=== PATIENT | male | born 1975 | race Two or more races ===

== ENCOUNTER 2019-12-09 05:08 | Inpatient (IN) | payer OTHER ==
[2019-12-09] VITALS (13 sets, daily range): BP systolic 117–142; BP diastolic 71–90
[~2019-12-09] VITALS: Ht 190.5 cm; Wt 137.9 kg
[2019-12-09] MEDS ORDERED: Vancomycin 1gm/D5W 275ml IVPB ONE ×2 (06:00)
[2019-12-09] MEDS ORDERED: Pantoprazole Inj IVP ONE (06:00)
[2019-12-09] MEDS ORDERED: Pantoprazole Inj ONE (06:45)
[2019-12-09] MEDS ORDERED: Rocuronium Bromide 50mg/5ml Inj IV ONE (06:46)
[2019-12-09] MEDS ORDERED: Vancomycin 1gm vial IVPB ONE (06:46)
[2019-12-09] MEDS ORDERED: Gelfoam Size TOPIC ONE (06:56)
[2019-12-09] MEDS ORDERED: Thrombin 5000 units TOPIC ONE (06:56)
[2019-12-09] MEDS ORDERED: Bacitracin Oint 15gm Tube TOPIC ONE (06:56)
[2019-12-09] MEDS ORDERED: Heparin 1000 units/ml 1ml Vial ONE (06:56)
[2019-12-09] MEDS ORDERED: Bacitracin 50000 Units Vial ONE (06:57)
[2019-12-09] MEDS ORDERED: Bupivacaine w/Epi 0.5% 30ml Vial INJ ONE (06:57)
[2019-12-09] MEDS ORDERED: Propofol 1,000mg/ 100ml btl IV ONE (07:00)
[2019-12-09] MEDS ORDERED: LR 1000ml 1,000 ML IVLG SCH (07:05)
[2019-12-09] MEDS ORDERED: Lidocaine 1% Plain 30 ml INJ ONE ×3 (07:09→10:55)
[2019-12-09] MEDS ORDERED: Metoclopramide 10mg/2ml Inj IVP PRN (07:15)
[2019-12-09] MEDS ORDERED: Labetalol 5mg/ml 20ml vial IV PRN (07:15)
[2019-12-09] MEDS ORDERED: Meperidine 25mg/0.5ml Inj (FOR RIGORS ONLY) IV PRN (07:15)
[2019-12-09] MEDS ORDERED: Acetaminophen (Non formulary) 100 ML IV ONE ×3 (07:15→15:00)
[2019-12-09] MEDS ORDERED: Ketorolac 30mg Inj IV PRN ×2 (07:15)
[2019-12-09] MEDS ORDERED: DiphenhydrAMINE 50mg/ml Inj IVP PRN (07:15)
[2019-12-09] MEDS ORDERED: Atropine Sulfate 0.4mg/ml inj IVP PRN (07:15)
[2019-12-09] MEDS ORDERED: LORazepam Inj 2mg/ml 1ml IV PRN (07:15)
[2019-12-09] MEDS ORDERED: fentaNYL 100 mcg/2 mL IV PRN (07:15)
[2019-12-09] MEDS ORDERED: HYDROcodone/Acetamin 7.5/325 tab ORAL PRN (07:15)
[2019-12-09] MEDS ORDERED: Hydromorphone 0.5mg/0.5ml inj IVP PRN (07:15)
[2019-12-09] MEDS ORDERED: oxyCODONE HCL/Acetaminophen 5/325mg ORAL PRN (07:15)
[2019-12-09] MEDS ORDERED: HYDROcodone/Acetamin 5/325 tab ORAL PRN (07:15)
[2019-12-09] MEDS ORDERED: Midazolam 2mg/2ml Inj IVP PRN (07:15)
[2019-12-09] MEDS ORDERED: Sodium Chloride 10ml vial INJ ONE (07:16)
[2019-12-09] MEDS ORDERED: Lidocaine 1% MPF 10mg/ml 5ml ONE (07:16)
[2019-12-09] MEDS ORDERED: Dexamethasone 4mg/ml vial ONE (07:16)
[2019-12-09] MEDS ORDERED: fentaNYL 100 mcg/2 mL IV ONE ×3 (07:17→11:21)
--- NOTE | 2019-12-09 07:26 | Anethesia Preoperative Eval ---
Anesthesia Pre-op PMH/ROS General Date of Evaluation: Dec 09, 2019 Time of Evaluation: 07:36 Anesthesiologist: Susana ASA Score: ASA 3 Mallampati Score Class I : Soft palate, uvula, fauces, pillars visible Class II: Soft palate, uvula, fauces visible Class III: Soft palate, base of uvula visible Class IV: Only hard plate visible Mallampati Classification: Class III Surgeon: Josep Diagnosis: Back Pain Surgical Procedure: TLIF L5-S1 Anesthesia History: none Family History: no anesthesia problems Allergies: Coded Allergies: No Known Allergies (Unverified , 12/06/19) Medications: see eMAR Patient NPO?: Yes NPO Date: Dec 08, 2019 NPO Time: 1900 Past Medical History Cardiovascular: Reports: HTN Pulmonary: Reports: MURIEL - CPAP Neurologic/Psychiatric: Reports: depression/anxiety Other: obesity - BMI 38 PSxH Narrative: Cholecystectomy Anesthesia Pre-op Phys. Exam Physician Exam Last Vital Signs Date Time Temp Pulse Resp B/P (MAP) Pulse Ox O2 Delivery O2 Flow Rate FiO2 12/09/19 06:11 Room Air 12/09/19 06:07 98.0 51 18 139/82 (101) 97 Constitutional: NAD Neurologic: CN 2-12 intact Cardiovascular: RRR Respiratory: CTA Gastrointestinal: S/NT/ND Airway Exam Mallampati Score: Class III MO: limited ROM: limited Teeth: intact Anesthesia Pre-op A/P Risk Assessment & Plan Assessment: ASA 3 Plan: GA, SED,GlideScope Status Change Before Surgery: No Pre-Antibiotics Dru Gram Vancomycin IV Given Within 1 Hr of Incision: Yes Time Given: 07:56 Pop Meza MD Dec 09, 2019 07:26
[2019-12-09] MEDS ORDERED: NS Irrig 1000ml ONE (07:30)
[2019-12-09] MEDS ORDERED: LR 1000ml ONE (07:30)
[2019-12-09] MEDS ORDERED: Sterile Water Irrig 2000ml IRRIG ONE (07:30)
--- NOTE | 2019-12-09 07:31 | Immediate Post-Op Evaluation ---
Immediate Post-Op Evalulation Immediate Post-Op Evalulation Procedure: TLIF L5-S1 Date of Evaluation: Dec 09, 2019 Time of Evaluation: 12:49 IV Fluids: 1000 LR Blood Products: 0 Estimated Blood Loss: 75 Urinary Output: 700 Blood Pressure Systolic: 125 Blood Pressure Diastolic: 73 Pulse Rate: 74 Respiratory Rate: 16 O2 Sat by Pulse Oximetry: 100 Temperature (Fahrenheit): 97.5 Pain Score (1-10): 2 Nausea: No Vomiting: No Complications 0 Patient Status: awake, reacts, patent, extubated, none Hydration Status: adequate Dru Gram Vancomycin IV Given Within 1 Hr of Incision: Yes Time Given: 07:56 Pop Meza MD Dec 09, 2019 07:31
--- NOTE | 2019-12-09 07:42 | Pre-Procedure Note/Attestation ---
Pre-Procedure Note/Attestation Complete Prior to Procedure Planned Procedure: bilateral Procedure Narrative: posterior lumbar decompressive surgery interbody fusion at L5-S1, with use of allograft bone, arthrodesis with use of pedicle screws allograft, and iliac crest bone marrow aspirate Attestation I attest that I discussed the nature of the procedure; its benefits; risks and complications; and alternatives (and the risks and benefits of such alternatives ), prior to the procedure, with the patient (or the patient's legal territory representative). I attest that, if there was a reasonable possibility of needing a blood transfusion, the patient (or the patient's legal territory representative) was given the [place] [facility] [employer] [facility] standardized written summary, pursuant to the Wesley Fredi Blood Safety Act ([place] Health and Safety Code # 1645, as amended). I attest that I re-evaluated the patient just prior to the surgery and that there has been no change in the patient's H&P, except as documented below: Juliann Car MD Dec 09, 2019 07:42
[2019-12-09] MEDS ORDERED: Glycopyrrolate 0.2mg/ml 1ml Vial ONE ×2 (08:50→08:51)
--- NOTE | 2019-12-09 09:55 | 48 Hour Post Anesthesia Eval ---
Post Anesthesia Evaluation Procedure: TLIF L5-S1 Date of Evaluation: Dec 09, 2019 Time of Evaluation: 14:54 Blood Pressure Systolic: 138 0: 76 Pulse Rate: 73 Respiratory Rate: 18 Temperature (Fahrenheit): 98.2 O2 Sat by Pulse Oximetry: 100 Airway: patent Nausea: No Vomiting: No Pain Intensity: 3 Hydration Status: adequate Cardiopulmonary Status: Stable Mental Status/LOC: patient returned to baseline Follow-up Care/Observations: 0 Post-Anesthesia Complications: 0 Follow-up care needed: N/A Pop Meza MD Dec 09, 2019 09:55
[2019-12-09] MEDS ORDERED: Propofol 200mg/20ml IV ONE (10:55)
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
--- NOTE | 2019-12-09 13:20 | General Progress Note ---
Progress Note Progress Note Neurosurgery post-op S/ Comfortable. No leg pain O/ vs: Last 24 Hour Vital Signs Date Time Temp Pulse Resp B/P (MAP) Pulse Ox O2 Delivery O2 Flow Rate FiO2 12/09/19 13:05 72 20 132/87 100 Nasal Cannula 3 12/09/19 12:55 76 13 134/88 100 Simple Mask 6 12/09/19 12:45 72 22 117/73 100 Simple Mask 6 12/09/19 12:40 66 20 118/71 100 Simple Mask 6 12/09/19 12:35 73 18 100 12/09/19 12:34 74 16 100 12/09/19 12:33 97.5 61 21 125/73 100 Simple Mask 6 12/09/19 06:11 Room Air 12/09/19 06:07 98.0 51 18 139/82 (101) 97 Alert and oriented x4 Moves all extremities well normal sensation lower extremity strength at 5/5 distally. doing well lumbar brace ordered Juliann Car MD Dec 09, 2019 13:20
--- NOTE | 2019-12-09 14:00 | NUR ---
NURSE NOTES: Pt came up to unit via via hospital bed w/family at bedside and all belongings accounted for. Pt A&Ox4; VSS; on 3L NC; and c/o severe back pain; will administer pain meds as ordered. IV site intact/asymptomatic; and surgical dressing & hemovac C/D/I. Will continue to monitor.
[2019-12-09] MEDS: HYDROmorphone 1mg/ml Carpuject IVP PRN (14:15)
[2019-12-09] MEDS ORDERED: Cyclobenzaprine 10mg Tab ORAL PRN (14:30)
[2019-12-09] MEDS ORDERED: Milk of Magnesia 30ml Ud ORAL PRN (14:30)
--- NOTE | 2019-12-09 14:36 | Diagnostic Imaging Report ---
Indication: Intraoperative imaging COMPARISON: None FINDINGS: Multiple fluoroscopic images were obtained intraoperatively. Multiple images of the lower lumbar spine during posterior L5-S1 fusion noted with placement of pedicle screws and fusion rods. Discectomy replacement noted as well. IMPRESSION: Intraoperative imaging as described above
[2019-12-09] MEDS: NS w/KCl 20mEq 1000ml 1,000 ML IV SCH (14:59)
[2019-12-09] MEDS ORDERED: traMADol 50mg tab ORAL PRN (15:00)
[2019-12-09] MEDS: Docusate 100mg cap ORAL SCH (17:32)
[2019-12-09] MEDS: Docusate Sod/Senna tab ORAL SCH (17:32)
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
[2019-12-09] MEDS: Vancomycin 1 GM in D5W 275 ML IVPB SCH (18:44)
[2019-12-09] MEDS ORDERED: Tamsulosin 0.4mg cap ORAL SCH (19:15)
--- NOTE | 2019-12-09 19:43 | NUR ---
HAND-OFF: Report given to LIU Jain. Endorsed that pt has yet to void and to call Dr. Joseph if pt does not void an hour after administering Flomax & Proscar.
--- NOTE | 2019-12-09 19:44 | NUR ---
NURSE NOTES: Received report from LIU Keller. Pt lying in bed. Pt alert and oriented x4 and in no apparent distress. Surgical dressing and hemovac clean, dry, and intact. Running IV fluids. Family at bedside. Bed in lowest position. Call light within reach. Pt trying to void using the urinal at this time. Will continue to monitor.
--- NOTE | 2019-12-09 21:15 | NUR ---
NURSE NOTES: Pt able to urinate without difficulty. Urine flushed by family member but per pt, he urinated "a lot".
--- NOTE | 2019-12-09 21:30 | NUR ---
NURSE NOTES: Got a clearance from Ángel from [employer]. Ok to use outlet for pts own CPAP. Will have RT set up pt's own cpap
[2019-12-10 00:27] VITALS: BP 107/50
[2019-12-10] MEDS: HYDROmorphone 1mg/ml Carpuject IVP PRN ×3 (01:16→20:30)
[2019-12-10] MEDS: NS w/KCl 20mEq 1000ml 1,000 ML IV SCH ×3 (01:16→13:53)
--- NOTE | 2019-12-10 01:18 | NUR ---
RESPIRATORY NOTE: pt brought in own cpap machine ok by engineering pt aware we are not to remove or place or make any changes to pesonal cpap machine.
[2019-12-10 04:00] VITALS: BP 111/60
[2019-12-10] MEDS: Vancomycin 1 GM in D5W 275 ML IVPB SCH (06:36)
--- NOTE | 2019-12-10 07:19 | NUR ---
HAND-OFF: Report given to LIU Arciniega. Pt in stable condition.
--- NOTE | 2019-12-10 07:43 | NUR ---
NURSE NOTES: AWAKE/ALERT. PAIN SCALE 3/10. NO C/O TINGLING/NUMBNESS BLE. IN NO APPARENT DISTRESS.
[2019-12-10 07:51] LABS: ANION GAP 11 mmol/L (5-15); BLOOD UREA NITROGEN 10 mg/dL (7-18); CALCIUM 8.6 MG/DL (8.5-10.1); CARBON DIOXIDE 24 MMOL/L (21-32); CHLORIDE 111 MMOL/L (98-107); CREATININE 0.8 MG/DL (0.55-1.30); POTASSIUM 3.8 MMOL/L (3.5-5.1); SODIUM 146 MMOL/L (136-145)
[2019-12-10 08:00] VITALS: BP 122/60
[2019-12-10] MEDS: Docusate Sod/Senna tab ORAL SCH ×2 (08:18→17:25)
[2019-12-10] MEDS: Docusate 100mg cap ORAL SCH ×2 (08:18→17:25)
[2019-12-10 12:00] VITALS: BP_SYST 134
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
[2019-12-10] MEDS ORDERED: Tubing IV Secondary IV ONE (15:14)
--- NOTE | 2019-12-10 15:30 | NUR ---
P.T Note: P.T evaluation completed and tx initiated per spinal protocol. See P.T evaluation for current functional status. Skilled P.T service is warranted to ensure safety and compliance with spinal/movement precaution and improve and increase mobility independence within surgical guidelines.
[2019-12-10 16:00] VITALS: BP 136/78
--- NOTE | 2019-12-10 18:45 | General Progress Note ---
Progress Note Progress Note Neurosurgery POD#1 S/ Left lower extremity shooting pain resolved Ambulated several times with PT and family O/ vs: Last 24 Hour Vital Signs Date Time Temp Pulse Resp B/P (MAP) Pulse Ox O2 Delivery O2 Flow Rate FiO2 12/10/19 16:00 98.6 60 20 136/78 (97) 97 12/10/19 14:01 98.3 12/10/19 12:51 98.3 12/10/19 12:00 98.3 75 22 134/ 94 12/10/19 09:45 81 18 98 Room Air 21 12/10/19 08:42 Room Air 12/10/19 08:00 98.2 60 20 122/60 (80) 97 12/10/19 04:00 98.9 71 111/60 (77) 12/10/19 02:31 81 18 98 12/10/19 00:27 98.1 67 107/50 (69) 12/09/19 21:00 Room Air 12/09/19 20:00 99.3 89 142/90 (107) Alert and oriented x 4 Moves all extremities normally lower xtremities 5/5 distally and proximally Incision is C/D/I HV removed without complication and new dressing applied. labs Laboratory Tests Test 12/10/19 05:05 Sodium Level 146 MMOL/L (136-145) H Potassium Level 3.8 MMOL/L (3.5-5.1) Chloride Level 111 MMOL/L (98-107) H Carbon Dioxide Level 24 MMOL/L (21-32) Anion Gap 11 mmol/L (5-15) Blood Urea Nitrogen 10 mg/dL (7-18) Creatinine 0.8 MG/DL (0.55-1.30) Estimat Glomerular Filtration Rate > 60 mL/min (>60) Glucose Level 102 MG/DL (74-106) Calcium Level 8.6 MG/DL (8.5-10.1) Magnesium Level 2.0 MG/DL (1.8-2.4) doing well bowel care lumbar brace discharging planning d/c instructions d/w family and nursing in detail Juliann Car MD Dec 10, 2019 18:45
--- NOTE | 2019-12-10 18:46 | NUR ---
CHARGE NURSE NOTES: Hemovac removed by Dr Car, redressing done. No bleeding or swelling noted. Discharge instructions & education given by Dr Car.
--- NOTE | 2019-12-10 19:49 | NUR ---
HAND-OFF: Report given to sherri livingston rn.
--- NOTE | 2019-12-10 19:50 | NUR ---
NURSE NOTES: Received patient and report from LIU Arciniega. Patient lying in bed. Pt alert and oriented x4. Pain level of 8/10. Surgical dressing clean, dry, and intact. Family at bedside. Bed in lowest position. Call light within reach.
[2019-12-10 20:00] VITALS: BP 137/84
[2019-12-10] MEDS: Lactulose 10gm/15ml UDC ORAL SCH (20:30)
[2019-12-10] MEDS ORDERED: Tamsulosin 0.4mg cap ORAL SCH (21:00)
[2019-12-10] MEDS: HYDROcodone/Acetamin 7.5/325 tab ORAL PRN (23:00)
[2019-12-11] VITALS: BP 127/69
[2019-12-11 04:00] VITALS: BP 130/73
--- NOTE | 2019-12-11 04:00 | NUR ---
NURSE NOTES: Pt ambulating in the hallway. Steady gait, no distress noted.
--- NOTE | 2019-12-11 07:11 | NUR ---
HAND-OFF: Report given to LIU Arciniega. Rounds done.
[2019-12-11] MEDS ORDERED: PERCOCET 10-321 EACH ORAL (07:14)
[2019-12-11] MEDS ORDERED: VITAMIN D33000 UNI1 PO (07:17)
[2019-12-11] MEDS ORDERED: CALCIUM600 M1 PO (07:18)
[2019-12-11] MEDS ORDERED: VITAMIN B COMP1 EAC2 ORAL (07:19)
[2019-12-11] MEDS ORDERED: MIRALAX17 G2 ORAL (07:21)
[2019-12-11 08:00] VITALS: BP 137/65
--- NOTE | 2019-12-11 08:07 | NUR ---
NURSE NOTES: ASLEEP. IN NO DISTRESS.
[2019-12-11] MEDS: Docusate Sod/Senna tab ORAL SCH (08:42)
[2019-12-11] MEDS: Lactulose 10gm/15ml UDC ORAL SCH (08:42)
[2019-12-11] MEDS: Docusate 100mg cap ORAL SCH (08:42)
[2019-12-11] MEDS: HYDROcodone/Acetamin 7.5/325 tab ORAL PRN (09:19)
--- NOTE | 2019-12-11 12:40 | NUR ---
DISCHARGED HOME PER WHEELCHAIR ACCPD BY IN STABLE CONDITION. DC INSTRUCTINS AND RX GIVEN.NURSE NOTES:
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
== END 2019-12-11 12:33 | disposition home or self-care (01) | DRG 454 ==
LOC: SDSOVERFLO 05:08 → 3E 13:45
PROC: 4A11X4G Monitoring of Peripheral Nervous Electrical Activity, Intraoperative, External Approach (ICD-10-PCS; principal; 2019-12-09 07:00)
PROC: 01NB0ZZ Release Lumbar Nerve, Open Approach (ICD-10-PCS; principal; 2019-12-09 07:00)
PROC: 0ST40ZZ Resection of Lumbosacral Disc, Open Approach (ICD-10-PCS; principal; 2019-12-09 07:00)
PROC: 07DR3ZZ Extraction of Iliac Bone Marrow, Percutaneous Approach (ICD-10-PCS; principal; 2019-12-09 07:00)
PROC: 0SG3071 Fusion of Lumbosacral Joint with Autologous Tissue Substitute, Posterior Approach, Posterior Column, Open Approach (ICD-10-PCS; principal; 2019-12-09 07:00)
PROC: 0SG30AJ Fusion of Lumbosacral Joint with Interbody Fusion Device, Posterior Approach, Anterior Column, Open Approach (ICD-10-PCS; principal; 2019-12-09 07:00)
DX: M43.17 Spondylolisthesis, lumbosacral region (principal); M48.37 Traumatic spondylopathy, lumbosacral region; M54.17 Radiculopathy, lumbosacral region
CPT/HCPCS: 36415; 72020; 76000; 80048; 83735; 86850; 86900; 86901; 87081; 94003; 94150; 94664; C9399; J2405; J7030